=== PATIENT | female | born 1970 | race Caucasian/White ===

== ENCOUNTER → 2019-09-25 | Outpatient (CLI) | payer OTHER ==
--- NOTE | 2019-09-25 12:32 | XR ---
Lumbar spine HISTORY: Low back pain 3 views of the lumbar spine correlated to prior exam 10/28/2015 There is multilevel spondylosis. Minimal anterolisthesis grade 1 L4-5. Lumbar vertebral bodies show p reserved height. Bone mineralization is reduced. Sclerosis present in the posterior elements of the l umbar spine. Loss of disc height present at intervertebral levels. Atherosclerotic vascular calcifica tions present in the abdominal aorta. Spina bifida occulta noted at S1. IMPRESSION: Osteopenia, degenerative disc disease and facet arthropathy.
== END | disposition home or self-care (01) ==
LOC: RADXRYALE 12:01
PROVIDERS: ATTEND Family Medicine
DX: M51.36 Other intervertebral disc degeneration, lumbar region (principal); M46.96 Unspecified inflammatory spondylopathy, lumbar region
CPT/HCPCS: 72100

== ENCOUNTER → 2021-09-08 | Outpatient (CLI) | payer BC ==
--- NOTE | 2021-09-08 13:27 | XR ---
EXAMINATION TYPE: XR chest 2V DATE OF EXAM: 09/08/2021 COMPARISON: NONE TECHNIQUE: PA and lateral views submitted. HISTORY: Cough previous pneumonia FINDINGS: There is a lobulated prominence of the right coarsened interstitium suggest residual interstitial no priors there is tiny bilateral effusions. No pneumothorax. Hypertrophic and degenerative change of th e spine. IMPRESSION: 1. Correlate for interstitial pneumonitis. CT of the chest is recommended to exclude right-sided mass or adenopathy within the right hilum.
== END | disposition home or self-care (01) ==
LOC: RADXRYALE 13:08
PROVIDERS: ATTEND Internal Medicine
DX: U07.1 COVID-19 (principal)
CPT/HCPCS: 71046

== ENCOUNTER → 2022-01-21 | Outpatient (CLI) | payer BC ==
--- NOTE | 2022-01-22 14:32 | MM ---
Reason for exam: screening (asymptomatic). Last mammogram was performed 2 years and 10 months ago. History: Patient is postmenopausal and has history of other cancer at age 36. Reductions of both breasts, 2008. Physical Findings: A clinical breast exam by your physician is recommended on an annual basis and results should be correlated with mammographic findings. MG 3D Screening Mammo W/Cad Bilateral CC and MLO view(s) were taken. Prior study comparison: March 26, 2019, mammogram, performed at [facility]. March 01, 2018, mammogram, performed at [facility]. There are scattered fibroglandular densities. Benign appearing bilateral calcifications. No significant changes when compared with prior studies. ASSESSMENT: Benign, BI-RAD 2 RECOMMENDATION: Routine screening mammogram of both breasts in 1 year.
== END | disposition home or self-care (01) ==
LOC: RADMAMWWP 07:56
PROVIDERS: ATTEND Internal Medicine
DX: Z12.31 Encounter for screening mammogram for malignant neoplasm of breast (principal); Z78.0 Asymptomatic menopausal state
CPT/HCPCS: 77063; 77067

== ENCOUNTER → 2023-01-26 | Outpatient (CLI) | payer OTHER ==
--- NOTE | 2023-01-27 22:42 | MM ---
Reason for Exam: Screening (asymptomatic). Last screening mammogram was performed 12 month(s) ago. Patient History: Menarche at age 7. First Full-Term at age 25. Postmenopausal. Patient has history of breast feeding. Other cancer, age 36. 2008, Bilateral Reduction. Risk Values: Kelly 5 year model risk: 1.4%. NCI Lifetime model risk: 10.1%. Prior Study Comparison: 03/01/2018 Screening Mammogram, [facility]. 03/26/2019 Screening Mammogram, [facility]. 01/21/2022 Bilateral Screening Mammogram, [facility]. Tissue Density: There are scattered fibroglandular densities. Findings: Analyzed By CAD. Pattern appears symmetrical and stable. Patient reports chronic inversion of the left nipple. No suspicious groups of microcalcifications, spiculated or lobular masses, architectural distortion or other secondary signs of malignancy are mammographically apparent. Overall Assessment: Benign, BI-RAD 2 Management: Screening Mammogram of both breasts in 1 year. A negative mammogram report should not preclude additional follow up of suspicious palpable abnormalities. Patient should continue monthly self breast exam. A clinical breast exam by your physician is recommended on an annual basis and results should be correlated with mammographic findings. Electronically signed and approved by: Dalton Bernard D.O. Radiologis
== END | disposition home or self-care (01) ==
LOC: RADMAMWWP 13:23
PROVIDERS: ATTEND Internal Medicine
DX: Z12.31 Encounter for screening mammogram for malignant neoplasm of breast (principal); Z78.0 Asymptomatic menopausal state
CPT/HCPCS: 77063; 77067

== ENCOUNTER → 2024-03-21 | Outpatient (CLI) | payer OTHER ==
--- NOTE | 2024-03-29 10:25 | MM ---
Reason for Exam: Screening (asymptomatic). Last mammogram was performed 1 year(s) and 2 month(s) ago. Patient History: Menarche at age 7. First Full-Term at age 25. Postmenopausal. Patient has history of breast feeding. Other cancer, age 36. 2008, Bilateral Reduction. Risk Values: Kelly 5 year model risk: 1.4%. NCI Lifetime model risk: 9.9%. Prior Study Comparison: 03/26/2019 Screening Mammogram, [facility]. 01/21/2022 Bilateral Screening Mammogram, [facility]. 01/26/2023 Bilateral MG 3D screening mammo w/cad, [facility]. Tissue Density: There are scattered areas of fibroglandular density. Findings: Analyzed By CAD. There is focal asymmetry in the outer left breast irregular margins is present in the upper portion left breast mediolateral oblique view is less suspicious. This lower density previously. There is a rounded density within the posterior right breast craniocaudal view. Bilateral axillary adenopathy is present. Right breast:No suspicious groups of microcalcifications, spiculated or lobular masses, architectural distortion or other secondary signs of malignancy are mammographically apparent. Overall Assessment: Incomplete: need additional imaging evaluation, BI-RAD 0 Management: Diagnostic Mammogram of the left breast. Diagnostic Breast Ultrasound of the left breast. A negative mammogram report should not preclude additional follow up of suspicious palpable abnormalities. Patient should continue monthly self breast exam. A clinical breast exam by your physician is recommended on an annual basis and results should be correlated with mammographic findings. Note on Kelly scores and lifetime risk: 1. A Kelly score greater than 3% is considered moderate risk. If this is the case, consider specialist referral to assess eligibility for a risk reducing agent. 2. If overall lifetime risk for the development of breast cancer is 20% or higher, the patient may qualify for future screening with alternating mammogram and breast MRI. Electronically signed and approved by: Dalton Bernard D.O. Radiologis
== END | disposition home or self-care (01) ==
LOC: RADMAMWWP 14:18
PROVIDERS: ATTEND Internal Medicine
DX: Z12.31 Encounter for screening mammogram for malignant neoplasm of breast (principal); Z78.0 Asymptomatic menopausal state
CPT/HCPCS: 77063; 77067

== ENCOUNTER → 2024-03-30 | Outpatient (CLI) | payer OTHER ==
--- NOTE | 2024-05-24 13:53 | MM ---
Reason for Exam: Additional evaluation requested from abnormal screening. Last screening mammogram was performed less than 1 month ago. Patient History: Menarche at age 7. First Full-Term at age 25. Postmenopausal. Patient has history of breast feeding. Other cancer, age 36. 2008, Bilateral Reduction. Risk Values: Kelly 5 year model risk: 1.4%. NCI Lifetime model risk: 9.9%. Prior Study Comparison: 01/21/2022 Bilateral Screening Mammogram, [facility]. 01/26/2023 Bilateral MG 3D screening mammo w/cad, [facility]. 03/21/2024 Bilateral MG 3D screening mammo w/cad, [facility]. Tissue Density: Left: There are scattered areas of fibroglandular density. Findings: Analyzed By CAD. Volar asymmetry upper outer quadrant left breast becomes less defined on the additional views. The appearance is similar to patient's prior studies. Findings compatible with an island of fibroglandular tissue. No significant change. Overall Assessment: Benign, BI-RAD 2 Management: Screening Mammogram of both breasts in 1 year. No ultrasound needed at this time. Results were given to the patient verbally at the time of exam. Patient should continue monthly self-breast exams. A clinical breast exam by your physician is recommended on an annual basis. This exam should not preclude additional follow-up of suspicious palpable abnormalities. Note on Kelly scores and lifetime risk: 1. A Kelly score greater than 3% is considered moderate risk. If this is the case, consider specialist referral to assess eligibility for a risk reducing agent. 2. If overall lifetime risk for the development of breast cancer is 20% or higher, the patient may qualify for future screening with alternating mammogram and breast MRI. Electronically signed and approved by: Kevin Pereira M.D. Radiologist
== END | disposition home or self-care (01) ==
LOC: RADMAMWWP 13:11
PROVIDERS: ATTEND Internal Medicine
DX: R92.8 Other abnormal and inconclusive findings on diagnostic imaging of breast (principal); Z78.0 Asymptomatic menopausal state; R92.322 Mammographic fibroglandular density, left breast
CPT/HCPCS: 77061; 77065